=== PATIENT | female | born 1985 | race Caucasian/White ===

== ENCOUNTER 2018-12-01 10:56 | Outpatient (CLI) | payer OTHER, BC | END 2018-12-01 12:11 | disposition home or self-care (01) | LOC: LC 10:56 | PROVIDERS: ATTEND Obstetrics & Gynecology | PROC: 4A1HXCZ Monitoring of Products of Conception, Cardiac Rate, External Approach (ICD-10-PCS; principal; 2018-12-01) | DX: Z34.93 Encounter for supervision of normal pregnancy, unspecified, third trimester (principal) | CPT/HCPCS: 59025 ==

== ENCOUNTER 2018-12-05 09:46 | Outpatient (CLI) | payer BC, OTHER ==
--- NOTE | 2018-12-05 11:35 | Non Stress Test Report ---
Non Stress Test Datetime Report Generated by CPN: 12/05/2018 11:35 DEMOGRAPHIC EGA NST: 41.4 EGA NST: 41.0 INDICATION Indication for Study: Ordered by Provider Indication for Study: Ordered by Provider VITAL SIGNS Temperature - NST: 98.0 Temperature - NST: 98.0 RESP - NST: 16 RESP - NST: 16 MONITORING Monitor Explained: Monitor Explained; Test Explained; Patient Verbalized Understanding Monitor Explained: Monitor Explained; Test Explained; Patient Verbalized Understanding Time on Monitor: 12/05/2018 09:52 Time on Monitor: 12/01/2018 11:05 Time off Monitor: 12/05/2018 11:24 Time off Monitor: 12/01/2018 12:10 NST Duration: 92 NST Duration: 65 NST INTERVENTIONS NST Interventions: Reposition Patient NST Interventions: Reposition Patient Physician Notified NST: Des Grajeda CNM Physician Notified NST: Rossana Grajeda CNRk on unit reviewed fht BABY A: [id number] BABY A Movement : Present Movement : Present Contraction Frequency : irregular Contraction Frequency : irregular FHR Baseline : 140 FHR Baseline : 140 Accelerations : 15X15 Accelerations : 15X15 Decelerations : None Decelerations : None Variability : Moderate 6-25bpm Variability : Moderate 6-25bpm NST Review: Meets Criteria for Reactive NST NST Review: Meets Criteria for Reactive NST NST Review and Verified By : Roxie Bettencourt RN NST Results: Reactive NST Results: Reactive NST REPORT Report Trigger: Send Report
== END 2018-12-05 11:46 | disposition home or self-care (01) ==
LOC: LC 09:46
PROVIDERS: ATTEND Student in an Organized Health Care Education/Training Program
PROC: 4A1HXCZ Monitoring of Products of Conception, Cardiac Rate, External Approach (ICD-10-PCS; principal; 2018-12-05)
DX: O47.1 False labor at or after 37 completed weeks of gestation (principal); O48.0 Post-term pregnancy; Z3A.40 40 weeks gestation of pregnancy
CPT/HCPCS: 59025

== ENCOUNTER 2018-12-10 07:09 | Inpatient (IN) | payer OTHER, BC ==
[2018-12-10] MEDS ORDERED: RINGERS SOLUTION,LACTATED 1,000 ML IV PRN (07:50)
[2018-12-10] MEDS ORDERED: RINGERS SOLUTION,LACTATED 300 ML IV ONE (07:50)
[2018-12-10] MEDS ORDERED: OXYTOCIN/NORMAL SALINE 20 UNIT/1,000 ML RTUINJ IV PRN ×2 (07:50→09:50)
[2018-12-10 07:59] LABS: APPEARANCE,URINE SLIGHTLY-CLOUDY; BILIRUBIN,URINE NEGATIVE (NEGATIVE); COLOR,URINE YELLOW; GLUCOSE, URINE NEGATIVE (NEGATIVE); KETONES,URINE TRACE mg/dL (NEGATIVE); LEUKOCYTE ESTERASE,URINE TRACE (NEGATIVE); NITRITE,URINE NEGATIVE (NEGATIVE); PROTEIN,URINE NEGATIVE (NEGATIVE); UROBILINOGEN,URINE NEGATIVE mg/dL (<2.0)
[2018-12-10 08:16] LABS: URINE AMPHETAMINES SCREEN NEGATIVE; URINE BARBITURATES SCREEN NEGATIVE; URINE BENZODIAZEPINES SCREEN NEGATIVE; URINE COCAINE SCREEN NEGATIVE; URINE MARIJUANA (THC) SCREEN NEGATIVE; URINE METHADONE SCREEN NEGATIVE; URINE PHENCYCLIDINE SCREEN NEGATIVE
[2018-12-10] MEDS ORDERED: OXYTOCIN/NORMAL SALINE 0 UNIT/0 ML RTUINJ ONE (08:35)
[2018-12-10] MEDS ORDERED: LIDOCAINE 1% INJ-PF (10 MG/ML) 30 ML SDV ONE (08:35)
[2018-12-10] MEDS ORDERED: MISOPROSTOL 0.2 MG TABLET ONE (08:35)
[2018-12-10] MEDS ORDERED: OXYTOCIN 10 UNIT/ML VIAL ONE (08:35)
[2018-12-10 08:50] LABS: ABSOLUTE BASOPHILS # (AUTO) 0.1 10^3/uL (0.0-0.2); ABSOLUTE LYMPHOCYTES (AUTO) 2.2 10^3/uL (0.5-4.7); ABSOLUTE MONOCYTES (AUTO) 0.8 10^3/uL (0.1-1.4); ABSOLUTE NEUT (AUTO) 16.3 10^3/uL (1.7-8.2); BASOPHILS % (AUTO) 0.5 % (0-2); EOSINOPHILS % (AUTO) 0.1 % (0-6); HEMATOCRIT 38.5 % (36.0-47.0); HEMOGLOBIN 13.3 g/dL (12.0-15.5); LYMPHOCYTES % (AUTO) 11.2 % (13-45); MEAN CORPUSCULAR HEMOGLOBIN 32.2 pg (27.0-33.4); MEAN CORPUSCULAR HGB CONC 34.5 g/dL (32.0-36.0); MEAN CORPUSCULAR VOLUME 93 fl (80-97); MONOCYTES % (AUTO) 4.3 % (3-13); PLATELET COUNT 227 10^3/uL (150-450); RED BLOOD COUNT 4.13 10^6/uL (3.72-5.28); SEGMENTED NEUTROPHILS % (AUTO) 83.9 % (42-78); TOTAL CELLS COUNTED % (AUTO) 100 %; WHITE BLOOD COUNT 19.4 10^3/uL (4.0-10.5)
[2018-12-10] MEDS ORDERED: PROMETHAZINE HCL 25 MG TABLET PO PRN (09:50)
[2018-12-10] MEDS ORDERED: ACETAMINOPHEN 325 MG TABLET PO PRN (09:50)
[2018-12-10] MEDS ORDERED: BENZOCAINE/MENTHOL AEROSOL SPRAY 56 ML TOP PRN (09:50)
[2018-12-10] MEDS ORDERED: DIPHENHYDRAMINE HCL 25 MG CAPSULE PO PRN (09:50)
[2018-12-10] MEDS ORDERED: MAGNESIUM HYDROXIDE SUSP 30 ML UDCUP PO PRN (09:50)
[2018-12-10] MEDS ORDERED: ACETAMINOPHEN WITH CODEINE #3 TABLET PO PRN ×2 (09:50)
[2018-12-10] MEDS ORDERED: PROMETHAZINE HCL INJ 25 MG/1 ML VIAL IV PRN (09:50)
[2018-12-10] MEDS ORDERED: NA PHOS,M-B/NA PHOS,DI-BA (ADULT) 133 ML ENEMA PR PRN (09:50)
[2018-12-10] MEDS ORDERED: GLYCERIN/WITCH HAZEL LEAF 1 EACH MED..WIPE TP PRN (09:50)
[2018-12-10] MEDS ORDERED: PSEUDOEPHEDRINE HCL 30 MG TABLET PO PRN (09:50)
[2018-12-10] MEDS ORDERED: PROMETHAZINE HCL 25 MG SUPP.RECT PR PRN (09:50)
[2018-12-10] MEDS ORDERED: MEASLES,MUMPS&RUBELLA VACC/PF 0.5 ML VIAL SUBCUT PRN (09:50)
[2018-12-10] MEDS ORDERED: DIBUCAINE 1% OINTMENT 56 GM TP PRN (09:50)
[2018-12-10] MEDS ORDERED: DIPH/PERTUSS(ACELL)/TETANUS VAC/PF 0.5 ML SYR (>=10YO) IM PRN (09:50)
[2018-12-10] MEDS ORDERED: IBUPROFEN 800 MG TABLET ONE (09:57)
--- NOTE | 2018-12-10 14:21 | Admission Physical ---
Datetime Report Generated by CPN: 12/10/2018 14:20 CURRENT ADMISSION Hx Assessment: The History has been Reviewed and is Current Chief Complaint: Uterine Contractions Indication for Induction: Not Applicable Admit Impression : Postterm, Intrauterine Admit Plan: Initiate Labor Protocol ALLERGIES Medication Allergies: No Medication Allergies: No Known Allergies (12/10/2018) Latex: No Latex Allergies OBSTETRICAL HISTORY EDC: 11/24/2018 00:00 : 3 Para: 2 Term: 2 : 0 SAB: 0 IAB: 0 Ectopic: 0 Livin Cesareans: 0 VBACs: 0 Multiple Births: 0 Gestational Diabetes: No Rh Sensitization: No Incompetent Cervix: No YONATAN: No Infertility: No ART Treatment: No Uterine Anomaly: No IUGR: No Hx Previous C/S: No Macrosomia: No Hx Loss/Stillborn: No PIH: No Hx : No Placenta Previa/Abruption: No Depression/PP Depression: No PTL/PROM: No Post Hemorrhage: No Current Procedures: Ultrasound Obstetrical History Comments: G1: 2011 40 wks 7lbs 3 oz male vaginal G2: 2013, 40.5 wks, 8lbs 10 oz male vaginal G3: current SEE RECORDS Alcohol: No Marijuana : No Cocaine: No Other Illicit Drugs: No Cigarettes: Never Smoker. 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 Heart Disease: No Hosp/Surgery: No Autoimmune Disorder: No Anesthetic Complications: No Kidney Disease: No Abnormal Pap Smear: No Neuro/Epilepsy: No Psychiatric Disorders: No Other Medical Diseases: No Hepatitis/Liver Disease: No Significant Family History: No Varicosities/Phlebitis: No Trauma/Violence : No Thyroid Dysfunction: No INFECTIOUS HISTORY Gonorrhea: No Genital Herpes: No Chlamydia: No Tuberculosis: No Syphilis: No Hepatitis: No HIV/AIDS Exposure: No Rash or Viral Illness: No HPV: Yes Infectious History Comments: HSV PHYSICAL EXAM General: Normal Neurologic: Normal Abdomen: Normal Extremities: Normal Pelvic Type: Adequate Physical Exam Comments: proven to 8lbs 10 oz Vital Signs: Reviewed; Within Normal Limits VAGINAL EXAM Dilatation: 3 Effacement: 50 Station: -2 Contraction Comments: 2-3 FETUS A EGA: 42.2 Monitoring: External US Variability: Moderate 6-25bpm Decelerations: Early; Variable FHR Category: Category II Admit Comment: 32yo Apos, GBS neg, significant hx for HSV, late care and enlarged thyroid. Came in labor and quickly delivered a viable baby boy. PLANS FOR LABOR AND DELIVERY Labor and Delivery: Plan Pain Management: Natural Feeding Preference: Breast Benefit of Breast Feed Discussed: Yes Circumcision: Yes INFORMED CONSENT Assignment: Bharati Shay MD Signature: with User ID: [email or web address] : with User ID: [email or web address]
[2018-12-10] MEDS: IBUPROFEN 800 MG TABLET PO SCH (17:20)
[2018-12-10] MEDS: DOCUSATE SODIUM 100 MG CAPSULE PO SCH (17:20)
[2018-12-10] MEDS: FERROUS SULFATE 325 MG TABLET PO SCH (17:20)
[2018-12-10] MEDS: FAMOTIDINE 20 MG TABLET PO SCH (21:37)
[2018-12-11] MEDS: IBUPROFEN 800 MG TABLET PO SCH ×3 (02:26→22:09)
[2018-12-11 07:08] LABS: HEMATOCRIT 31.6 % (36.0-47.0); MEAN CORPUSCULAR HEMOGLOBIN 32.4 pg (27.0-33.4); MEAN CORPUSCULAR HGB CONC 34.2 g/dL (32.0-36.0); MEAN CORPUSCULAR VOLUME 95 fl (80-97); PLATELET COUNT 207 10^3/uL (150-450); RED BLOOD COUNT 3.34 10^6/uL (3.72-5.28); RED CELL DISTRIBUTION WIDTH 14.4 % (11.5-14.0); WHITE BLOOD COUNT 11.5 10^3/uL (4.0-10.5)
[2018-12-11 07:13] LABS: HEMOGLOBIN 10.8 g/dL (12.0-15.5)
[2018-12-11] MEDS: DOCUSATE SODIUM 100 MG CAPSULE PO SCH ×2 (09:45→17:39)
[2018-12-11] MEDS: FAMOTIDINE 20 MG TABLET PO SCH ×2 (09:45→22:34)
[2018-12-11] MEDS: PRENATAL VITAMIN W DHA CAPSULE PO SCH (09:45)
[2018-12-11] MEDS: FERROUS SULFATE 325 MG TABLET PO SCH ×2 (09:45→17:39)
[2018-12-11] MEDS: SENNOSIDES/DOCUSATE 8.6-50 MG 1 EACH TABLET PO SCH (09:46)
--- NOTE | 2018-12-11 10:33 | PDOC PROGRESS REPORT ---
Subjective-OB Progress Note for:: 12/11/18 Physical Exam (OB) Vital Signs: Temp Pulse Resp BP Pulse Ox 98.2 F 76 16 107/64 100 12/11/18 07:23 12/11/18 07:23 12/11/18 07:23 12/11/18 07:23 12/11/18 07:23 Intake & Output 12/10/18 12/11/18 12/12/18 06:59 06:59 06:59 Weight 73.7 kg - PIH/Pre-Eclampsia DTR's: 2 + Clonus: Negative Headache: Absent Epigastric Pain: No Visual Changes: No - Lochia Lochia Amount: Scant < 10 ml Lochia Color: Rubra/Red - Abdomen Description: Soft Hernia Present: No Bowel Sounds: Normoactive Flatus Presence: Present Stool: No Fundal Description: Firm, Midline Fundal Height: u/u - u/2 Objective-Diagnostic Laboratory: 12/11/18 06:11 12/11/18 06:11 WBC 11.5 H RBC 3.34 L Hgb 10.8 L D Hct 31.6 L MCV 95 MCH 32.4 MCHC 34.2 RDW 14.4 H Plt Count 207
[2018-12-12] MEDS: IBUPROFEN 800 MG TABLET PO SCH ×2 (06:26→09:37)
[2018-12-12 08:05] VITALS: BP 116/72
[2018-12-12] MEDS: FERROUS SULFATE 325 MG TABLET PO SCH (09:35)
[2018-12-12] MEDS: SENNOSIDES/DOCUSATE 8.6-50 MG 1 EACH TABLET PO SCH (09:35)
[2018-12-12] MEDS: DOCUSATE SODIUM 100 MG CAPSULE PO SCH (09:35)
[2018-12-12] MEDS: FAMOTIDINE 20 MG TABLET PO SCH (09:37)
[2018-12-12] MEDS: PRENATAL VITAMIN W DHA CAPSULE PO SCH (09:37)
--- NOTE | 2018-12-12 09:49 | PDOC PROGRESS REPORT ---
Subjective-OB Progress Note for:: 12/12/18 Subjective: Doing well, no c/o, ready to go home, , voiding, scant lochia Physical Exam (OB) Vital Signs: Temp Pulse Resp BP Pulse Ox 97.8 F 66 14 116/72 100 12/12/18 07:30 12/12/18 07:30 12/12/18 07:30 12/12/18 07:30 12/12/18 07:30 Intake & Output 12/11/18 12/12/18 12/13/18 06:59 06:59 06:59 Intake Total 700 Balance 700 Weight 73.7 kg - PIH/Pre-Eclampsia DTR's: 2 + Clonus: Negative Headache: Absent Epigastric Pain: No Visual Changes: No - Lochia Lochia Amount: Small 10-25 ml Lochia Color: Rubra/Red - Abdomen Description: Soft, Round Hernia Present: No Fundal Description: Firm, Midline Fundal Height: u/u - u/2 Objective-Diagnostic Laboratory: 12/11/18 06:11 Assessment and Plan(PN) - Assessment and Plan (1) History HSV Is this a current diagnosis for this admission?: Yes (2) Delivery normal Is this a current diagnosis for this admission?: Yes - Time Spent with Patient Time with patient: Less than 15 minutes Medications reviewed and adjusted accordingly: Yes - Disposition Anticipated Discharge: Home Within: within 24 hours
--- NOTE | 2018-12-12 09:57 | PDOC DISCHARGE SUMMARY ---
Impression - Admit/DC Date/PCP Admission Date/Primary Care Provider: 12/10/18 07:59 MARLEN RUSSELL DO Discharge Date: 12/12/18 - Discharge Diagnosis (1) History HSV Is this a current diagnosis for this admission?: Yes (2) Delivery normal Is this a current diagnosis for this admission?: Yes - Assessment Summary: pt arrived in labor, precipitious labor, GBS neg, delivered live male infant, perineal superficial laceration, wt= 8-13, 7/9 - Additional Information Resuscitation Status: Full Code Discharge Diet: As Tolerated, Regular Discharge Activity: Activity As Tolerated, No Lifting Over 10 Pounds, No Lifting/Push/Pulling, Pelvic Rest Referrals: MARLEN ALBRECHT DO [Primary Care Provider] - (4 weeks) Home Medications: No.137/Iron/Folic Acd [ Vitamin Tablet] 1 tab PO DAILY 11/19/13 Additional Information: D/C home HPI Gestational Age: 42.2 Reason(s) for Admission: Onset of Labor Procedures: Ultrasound Intrapartum Procedure(s): Spontaneous Vaginal Delivery Complication(s): Laceration-Perineal Results Laboratory Results: WBC 11.5 10^3/uL (4.0-10.5) H 12/11/18 06:11 RBC 3.34 10^6/uL (3.72-5.28) L 12/11/18 06:11 Hgb 10.8 g/dL (12.0-15.5) L D 12/11/18 06:11 Hct 31.6 % (36.0-47.0) L 12/11/18 06:11 MCV 95 fl (80-97) 12/11/18 06:11 MCH 32.4 pg (27.0-33.4) 12/11/18 06:11 MCHC 34.2 g/dL (32.0-36.0) 12/11/18 06:11 RDW 14.4 % (11.5-14.0) H 12/11/18 06:11 Plt Count 207 10^3/uL (150-450) 12/11/18 06:11 Lymph % (Auto) 11.2 % (13-45) L 12/10/18 08:18 [place] % (Auto) 4.3 % (3-13) 12/10/18 08:18 Eos % (Auto) 0.1 % (0-6) 12/10/18 08:18 Baso % (Auto) 0.5 % (0-2) 12/10/18 08:18 Absolute Neuts (auto) 16.3 10^3/uL (1.7-8.2) H 12/10/18 08:18 Absolute Lymphs (auto) 2.2 10^3/uL (0.5-4.7) 12/10/18 08:18 Absolute Monos (auto) 0.8 10^3/uL (0.1-1.4) 12/10/18 08:18 Absolute Eos (auto) 0.0 10^3/uL (0.0-0.6) 12/10/18 08:18 Absolute Basos (auto) 0.1 10^3/uL (0.0-0.2) 12/10/18 08:18 Seg Neutrophils % 83.9 % (42-78) H 12/10/18 08:18 Urine Color YELLOW 12/10/18 07:32 Urine Appearance SLIGHTLY-CLOUDY 12/10/18 07:32 Urine pH 6.0 (5.0-9.0) 12/10/18 07:32 Ur Specific [place] 1.020 12/10/18 07:32 Urine Protein NEGATIVE mg/dL (NEGATIVE) 12/10/18 07:32 Urine Glucose (UA) NEGATIVE mg/dL (NEGATIVE) 12/10/18 07:32 Urine Ketones TRACE mg/dL (NEGATIVE) H 12/10/18 07:32 Urine Blood LARGE (NEGATIVE) H 12/10/18 07:32 Urine Nitrite NEGATIVE (NEGATIVE) 12/10/18 07:32 Urine Bilirubin NEGATIVE (NEGATIVE) 12/10/18 07:32 Urine Urobilinogen NEGATIVE mg/dL (<2.0) 12/10/18 07:32 Ur Leukocyte Esterase TRACE (NEGATIVE) H 12/10/18 07:32 Urine Ascorbic Acid NEGATIVE (NEGATIVE) 12/10/18 07:32 Urine Opiates Screen NEGATIVE 12/10/18 07:32 Urine Methadone Screen NEGATIVE 12/10/18 07:32 Ur Barbiturates Screen NEGATIVE 12/10/18 07:32 Ur Phencyclidine Scrn NEGATIVE 12/10/18 07:32 Ur Amphetamines Screen NEGATIVE 12/10/18 07:32 U Benzodiazepines Scrn NEGATIVE 12/10/18 07:32 Urine Cocaine Screen NEGATIVE 12/10/18 07:32 U Marijuana (THC) Screen NEGATIVE 12/10/18 07:32 RPR NONREACTIVE (NONREACTIVE) 12/10/18 08:18 Blood Type A POSITIVE 12/10/18 08:18 Antibody Screen NEGATIVE 12/10/18 08:18
== END 2018-12-12 13:00 | disposition home or self-care (01) | DRG 806 ==
LOC: LC 07:09 → LR 07:59 → 2N 10:50
PROVIDERS: ADMIT Obstetrics & Gynecology; ATTEND Obstetrics & Gynecology
PROC: 10E0XZZ Delivery of Products of Conception, External Approach (ICD-10-PCS; principal; 2018-12-10)
DX: O48.1 Prolonged pregnancy (principal); O98.32 Other infections with a predominantly sexual mode of transmission complicating childbirth; Z37.0 Single live birth; A60.00 Herpesviral infection of urogenital system, unspecified; Z3A.49 Greater than 42 weeks gestation of pregnancy
CPT/HCPCS: 36415; 80307; 81005; 85025; 85027; 86592; 86850; 86900; 86901; J2590; J3490